=== PATIENT | female | born 1960 | race Caucasian/White ===

== ENCOUNTER 2017-10-30 15:12 | Outpatient (CLI) | payer OTHER ==
--- NOTE | 2017-10-31 10:00 | XRAY Report ---
TWO-VIEW THORACIC SPINE: 10/30/2017 CLINICAL INDICATION: Back pain. FINDINGS: Frontal and lateral views of the thoracic spine demonstrate levoscoliosis of the upper thoracic spine, measuring 24 degrees between the pedicles of T2 and T6. There is no evidence of fracture. No paraspinal hematoma is seen. IMPRESSION: LEVOSCOLIOSIS OF THE UPPER THORACIC SPINE. TD: 10/31/2017 09:27
--- NOTE | 2017-10-31 10:01 | XRAY Report ---
THREE VIEW LUMBAR SPINE: 10/30/2017 CLINICAL INDICATION: Back pain. FINDINGS: AP, lateral, coned down views of the lumbar spine demonstrate mild compensatory dextroscoliosis and degenerative disk and facet disease. There is no evidence of compression fracture. The bowel gas pattern appears unremarkable. IMPRESSION: DEGENERATIVE DISK AND FACET DISEASE, WITH MILD COMPENSATORY DEXTROSCOLIOSIS. TD: 10/31/2017 09:28
--- NOTE | 2017-10-31 10:02 | XRAY Report ---
RIGHT HIP AND PELVIS: 10/30/2017 CLINICAL INDICATION: Pain. FINDINGS: Frontal view of the hips and pelvis and frogleg lateral view of the right hip demonstrate no evidence of fracture or dislocation. Mild osteoarthritis is present. No foreign body is seen in the soft tissues. IMPRESSION: MILD RIGHT HIP OSTEOARTHRITIS. TD: 10/31/2017 09:43
== END 2017-10-30 15:13 | disposition home or self-care (01) ==
LOC: DI.N 15:12
PROVIDERS: ATTEND Nurse Practitioner Gerontology
DX: M41.84 Other forms of scoliosis, thoracic region (principal); M51.36 Other intervertebral disc degeneration, lumbar region; M47.896 Other spondylosis, lumbar region; M16.11 Unilateral primary osteoarthritis, right hip
CPT/HCPCS: 72070; 72100